=== PATIENT | male | born 1990 | race Two or more races ===

== ENCOUNTER 2021-06-10 10:37 | Emergency (ER) | payer SELFPAY ==
[~2021-06-10] VITALS: Ht 172.7 cm; Wt 88.5 kg
[2021-06-10 15:05] VITALS: BP 136/97
== END 2021-06-10 15:32 | disposition home or self-care (01) ==
LOC: ER 10:37
DX: S91.311D Laceration without foreign body, right foot, subsequent encounter (principal); X58.XXXD Exposure to other specified factors, subsequent encounter